=== PATIENT | female | born 1975 | race Two or more races ===

== ENCOUNTER 2025-02-22 15:35 | Emergency (ER) | payer MEDICAID, OTHER ==
[~2025-02-22] VITALS: Ht 167.6 cm; Wt 71.0 kg
[2025-02-22 15:36] VITALS: TEMP 97.4
--- NOTE | 2025-02-22 17:46 | ED.PDOC ---
History of Present Illness HPI Comments 49-year-old female with no reported PMHx presents with a chief complaint of right foot/ankle pain x 1 week. Patient states that one week ago she was working at a [employer] party and believes that she twisted her ankle when stepping incorrectly. Patient reports that she has been taking Advil's for the pain, but that they have not been helping. Patient reports that now her foot is turning purple and is swelling. No other symptoms or modifying factors present at this time. Chief Complaint: Lower Extremity Time Seen by MD: 17:40 Reviewed Notes: Medications, Allergies Allergies: Coded Allergies: Acetaminophen (Verified Allergy, Severe, 02/22/25) Home Meds Active Scripts Diclofenac Potassium (Diclofenac Potassium) 50 Mg Tab, 1 TAB PO TIDP for 10 Days, #30 TAB Prov:BUD ALEMAN MD 02/22/25 Information Source: Patient Mode of Arrival: Ambulatory Severity: Moderate Timing: Days Duration: Since onset Prehospital treatment: None Past Medical History PAST MEDICAL HISTORY: Denies Surgical History: Denies all surgeries [employer]ER History: Denies all [employer]ER Hx Family History Family History: Reviewed,noncontributory to illness Social History Smoker: Non-Smoker Alcohol: Denies ETOH Use Drugs: Denies Drug Use Lives In: Home Constitutional: denies: chills, diaphoresis, fatigue, fever, malaise, sweats, weakness, others EENTM: denies: blurred vision, double vision, ear bleeding, ear discharge, ear drainage, ear pain, ear ringing, eye pain, eye redness, hearing loss, mouth pain, mouth swelling, nasal discharge, nose bleeding, nose congestion, nose pain, photophobia, tearing, throat pain, throat swelling, voice changes, others Respiratory: denies: cough, hemoptysis, orthopnea, SOB at rest, shortness of breath, SOB with excertion, stridor, wheezing, others Cardiovascular: denies: chest pain, dizzy spells, diaphoresis, Dyspnea on exertion, edema, irregular heart beat, left arm pain, lightheadedness, palpitations, PND, syncope, others Gastrointestinal: denies: abdomen distended, abdominal pain, blood streaked bowels, constipated, diarrhea, dysphagia, difficulty swallowing, hematemesis, melena, nausea, poor appetite, poor fluid intake, rectal bleeding, rectal pain, vomiting, others Genitourinary: denies: abnormal vagina bleeding, burning, dyspareunia, dysuria, flank pain, frequency, hematuria, incontinence, pain, , vagina discharge, urgency, others Neurological: denies: dizziness, fainting, headache, left sided numbness, left sided weakness, numbness, paresthesia, pre-existing deficit, right sided num bness, right sided weakness, seizure, speech problems, tingling, tremors, weakness, others Musculoskeletal: reports: muscle pain; denies: back pain, gout, joint pain, joint swelling, muscle stiffness, neck pain, others Integumetry: denies: bruises, change in color, change in hair/nails, dryness, laceration, lesions, lumps, rash, wounds, others Allergic/Immunocompromised: denies: Difficulty Healing, Frequent Infections, Hi ves, Itching, others Hematologic/Lymphatic: denies: anemia, blood clots, easy bleeding, easy bruising, swollen glands, others Endocrine: denies: excessive hunger, excessive sweating, excessive thirst, excessive urination, flushing, intolerance to cold, intolerance to heat, unexplained weight gain, unexplained weight loss, others Psychiatric: denies: anxiety, bipolar disorder, depression, hopeless, panic disorder, schizophrenia, sleepless, suicidal, others All Other Systems: Reviewed and Negative Physical Exam General Appearance: Moderate Distress, Normal HEENT: Normal ENT Inspection, PERRL/EOMI, Pharynx Normal, TMs Normal Neck: Full Range of Motion, Non-Tender, Normal, Normal Inspection Respiratory: Chest Non-Tender, Lungs Clear, No Accessory Muscle Use, No Respiratory Distress, Normal Breath Sounds Cardiovascular: No Edema, No JVD, No Murmur, No Gallop, Normal Peripheral Pulses, Regular Rate/Rhythm Breast Exam: Deferred Gastrointestinal: No Organomegaly, Non Tender, No Pulsatile Mass, Normal Bowel Sounds, Soft Genitalia: Deferred Pelvic: Deferred Rectal: Deferred Extremities: No calf tenderness, Normal capillary refill, Normal inspection, Normal range of motion, Non-tender, No pedal edema Musculoskeletal : Location: Right Extremity Location: Ankle, Foot Apperance: Swelling, Limited ROM, Tenderness: Moderate Neurologic: Alert, snack stewardess II-XII nml as Tested, No Motor Deficits, Normal Affect, Normal Mood, No Sensory Deficits Cerebellar Function: Normal Reflexes: Normal Skin: Dry, Normal Color, Warm Peripheral Pulses: 1+ carotid (R), 1+ carotid (L) Lymphatic: No Adenopathy Was a procedure done? Was a procedure done?: No Differential Dx Considerations may include: Fracture sprain X-Ray, Labs, Meds, VS Vital Signs Date Time Temp Pulse Resp B/P (MAP) Pulse Ox O2 Delivery O2 Flow Rate FiO2 02/22/25 17:57 97 18 108/79 (89) 73 02/22/25 17:57 71 18 97 Room Air 02/22/25 15:36 97.4 85 15 113/73 96 97.4 X-Ray, Labs, Meds, VS Comment Patient came in to the [facility] with a an injury to her right ankle and right foot X-ray to right ankle and right foot shows mostly a fracture of the distal fibula Patient will have a posterior plaster splint and discharged home to follow up with her PCP Time of 1ST Reevaluation: 18:20 Reevaluation 1ST: Unchanged Time of 2ND Reevaluation: 18:33 Reevaluation 2ND: Unchanged Consultation: PCP Patient Education/Counseling: Diagnosis, Treatment, Prognosis, Need For Follow Up Family Education/Counseling: Diagnosis, Treatment, Prognosis, Need For Follow Up SEPSIS Sepsis Screen Date sepsis recognized/suspect: Feb 22, 2025 Time Sepsis recognized/suspect: 1538 Recent Procedure: No On Antibiotic Therapy: No Respiratory Rate >20: No Heart Rate >90: No Temp<36 C (96.8 F) or >38.3 C: No SBP <90 or MAP <65 mmHG: No New Acute Mental Status Change: No Is the patient on CPAP, BIPAP,: No Physician Orders R Ankle 3 View (02/22/25 17:41) R Foot 3 View Xray (02/22/25 17:41) Vital Signs Date Time Temp Pulse Resp B/P (MAP) Pulse Ox O2 Delivery O2 Flow Rate FiO2 02/22/25 17:57 97 18 108/79 (89) 73 02/22/25 17:57 71 18 97 Room Air 02/22/25 15:36 97.4 85 15 113/73 96 97.4 Departure 1 Departure Time of Disposition: 18:33 Impression: Primary Impression: Fracture of distal fibula Qualified Codes: S82.831A - Other fracture of upper and lower end of right fibula, initial encounter for closed fracture Disposition: 01 HOME / SELF CARE / HOMELESS Condition: Fair Additional Instructions: Your leg at home and follow up with your PCP e-Prescriptions Diclofenac Potassium (Diclofenac Potassium) 50 Mg Tab 1 TAB PO TIDP for 10 Days, #30 TAB Prov: BUD ALEMAN MD 02/22/25 Discharged With: Self Critical Care Note Critical Care Time?: No Stability Stability form required: No Heart Score Heart Score: Heart Score Response (Comments) Value History N/A 0 EKG N/A 0 Age 45-64 1 Risk Factors No known risk factors 0 Troponin N/A 0 Total 1 I personally scribed for BDU ALEMAN MD ([email or web address]) on 02/22/25 at 17:46. Electr onically submitted by Jh Lopez ([email or web address]). BUD ALEMAN MD Feb 22, 2025 17:46
[2025-02-22 17:57] VITALS: BP 108/79; PULSE 71; RESP 18; O2SAT 97
--- NOTE | 2025-02-22 18:24 | DVH ---
CLINICAL INDICATION: twisted TECHNIQUE: 3 radiographic views of the right foot were obtained. Comparison: XY R ANKLE 3 VIEW on DOS: 02/22/25 FINDINGS/IMPRESSION: Minimally displaced fracture distal fibula.
--- NOTE | 2025-02-22 18:26 | DVH ---
CLINICAL INDICATION: twisted TECHNIQUE: 3 radiographic views of the right ankle were obtained. Comparison: XY R FOOT 3 VIEW XRAY on DOS: 02/22/25 FINDINGS/IMPRESSION: Minimally displaced fracture distal fibula
[2025-02-22] MEDS ORDERED: DICL50TA2 PO (18:35)
== END 2025-02-22 18:42 | disposition home or self-care (01) ==
LOC: ER 15:35
DX: S82.831A Other fracture of upper and lower end of right fibula, initial encounter for closed fracture (principal); Z79.899 Other long term (current) drug therapy; X50.1XXA Overexertion from prolonged static or awkward postures, initial encounter; Y93.89 Activity, other specified; Y92.89 Other specified places as the place of occurrence of the external cause; Y99.8 Other external cause status
CPT/HCPCS: 29515; 73610; 73630

== ENCOUNTER 2025-03-31 13:51 | Emergency (ER) | payer MEDICAID ==
[~2025-03-31] VITALS: Ht 167.6 cm; Wt 70.0 kg
[~2025-03-31 13:51] MED LIST: DICL50TA2 PO
--- NOTE | 2025-03-31 15:23 | ED.PDOC ---
Back pain HPI HPI Comments 49-year-old female presents to the ER with a right foot pain. Patient reports on having experiencing persistent pain in the right foot particularly around the ankle for over a month falling a possible twist. The patient reports that an x- ray was taken on February 22, [address] Mei for right foot pain following a possible twist and they were told the there was likely a fracture in the distal fibula. The pain has not improves significantly since then in the area remains painful and sometimes appears purple in color. Patient has not been taking her prescribed diclofenac tablets for pain management due from the pharmacy indicating that the prescription was not improve. The pain does affect her daily activities and they would want to ensure proper healing at this time. Denies any other symptoms at this time. Chief Complaint: Lower Extremity Time Seen by MD: 15:20 Reviewed Notes: Nurses Notes, Medications, Allergies Allergies: Coded Allergies: Acetaminophen (Verified Allergy, Severe, 02/22/25) Home Meds Active Scripts Diclofenac Potassium (Diclofenac Potassium) 50 Mg Tab, 1 TAB PO TIDP for 10 Days, #30 TAB Prov:BUD MEI MD 02/22/25 Information Source: Patient Mode of Arrival: Ambulatory Timing: Weeks Duration: Since onset Severity: Moderate Prehospital treatment: None Quality: Aching Onset: Twisting History of: None Associated signs and symptoms: None Past Medical History PAST MEDICAL HISTORY: Denies 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 [employer]IST[employer] Hx Family History Family History: Reviewed,noncontributory to illness, Unknown Social History Smoker: Non-Smoker Alcohol: Denies ETOH Use Drugs: Denies Drug Use Lives In: Home Constitutional: denies: chills, diaphoresis, fatigue, fever, malaise, sweats, weakness, others EENTM: denies: blurred vision, double vision, ear bleeding, ear discharge, ear drainage, ear pain, ear ringing, eye pain, eye redness, hearing loss, mouth pain, mouth swelling, nasal discharge, nose bleeding, nose congestion, nose pain, photophobia, tearing, throat pain, throat swelling, voice changes, others Respiratory: denies: cough, hemoptysis, orthopnea, SOB at rest, shortness of breath, SOB with excertion, stridor, wheezing, others Cardiovascular: denies: chest pain, dizzy spells, diaphoresis, Dyspnea on exertion, edema, irregular heart beat, left arm pain, lightheadedness, pa lpitations, PND, syncope, others Gastrointestinal: denies: abdomen distended, abdominal pain, blood streaked bowels, constipated, diarrhea, dysphagia, difficulty swallowing, hematemesis, melena, nausea, poor appetite, poor fluid intake, rectal bleeding, rectal pain, vomiting, others Genitourinary: denies: abnormal vagina bleeding, burning, dyspareunia, dysuria, flank pain, frequency, hematuria, incontinence, pain, , vagina discharge, urgency, others Neurological: denies: dizziness, fainting, headache, left sided numbness, left sided weakness, numbness, paresthesia, pre-existing deficit, right sided numbness, right sided weakness, seizure, speech problems, tingling, tremors, weakness, others Musculoskeletal: reports: others (Right ankle pain/swelling); denies: back pain , gout, joint pain, joint swelling, muscle pain, muscle stiffness, neck pain Integumetry: denies: bruises, change in color, change in hair/nails, dryness, laceration, lesions, lumps, rash, wounds, others Allergic/Immunocompromised: denies: Difficulty Healing, Frequent Infections, Hives, Itching, others Hematologic/Lymphatic: denies: anemia, blood clots, easy bleeding, easy bruising, swollen glands, others Endocrine: denies: excessive hunger, excessive sweating, excessive thirst, excessive urination, flushing, intolerance to cold, intolerance to heat, unexplained weight gain, unexplained weight loss, others Psychiatric: denies: anxiety, bipolar disorder, depression, hopeless, panic disorder, schizophrenia, sleepless, suicidal, others All Other Systems: Reviewed and Negative Physical Exam Exam Comments Mild swelling to the right lateral malleolus, dorsiflexion plantar flexion strong, DP 2+ neurovascular sensation intact no pain to the Achilles General Appearance: No Apparent Distress, Normal HEENT: Normal ENT Inspection, Pharynx Normal, TMs Normal Neck: Full Range of Motion, Non-Tender, Normal, Normal Inspection Respiratory: Chest Non-Tender, Lungs Clear, No Accessory Muscle Use, No Respiratory Distress, Normal Breath Sounds Cardiovascular: No Edema, No JVD, No Murmur, No Gallop, Normal Peripheral Pulses, Regular Rate/Rhythm Breast Exam: Deferred Gastrointestinal: No Organomegaly, Non Tender, No Pulsatile Mass, Normal Bowel Sounds, Soft Genitalia: Deferred Pelvic: Deferred Rectal: Deferred Extremities: No calf tenderness, Normal capillary refill, Normal inspection, Normal range of motion, Non-tender, No pedal edema Musculoskeletal : Apperance: Normal Neurologic: Alert, technical solutions director II-XII nml as Tested, No Motor Deficits, Normal Affect, Normal Mood, No Sensory Deficits Cerebellar Function: Normal Reflexes: Normal Skin: Dry, Normal Color, Warm Lymphatic: No Adenopathy Was a procedure done? Was a procedure done?: No Back Pain Differential Dx Differential Diagnosis: Fracture, Musculoskeletal Pain, N/A X-Ray, Labs, Meds, VS Vital Signs Date Time Temp Pulse Resp B/P (MAP) Pulse Ox O2 Delivery O2 Flow Rate FiO2 03/31/25 13:56 98.2 72 17 125/85 97 98.2 PATIENT: JOLIE MELGOZAACCT: [id number] UNIT: [id number] : 1975 LOC: ER ROOM / BED: / AGE / SEX: 49 / F ADM STATUS: REG ER SERVICE 53 ORDERING PHYSICIAN: KELLEY BYERS PRICING STRATEGIST PROCEDURE(s): RANKL - R ANKLE 3 VIEW REASON: fracture 4 wks ago. [facility] ORDER NUMBER(s): [id number], ACCESSION NUMBER(s): [id number] CLINICAL INDICATION: fracture 4 wks ago. [facility] study TECHNIQUE: 3 radiographic views of the right ankle were obtained. Comparison: XY R ANKLE 3 VIEW on DOS: 02/22/25 FINDINGS/IMPRESSION: Mildly displaced distal fibular fracture is noted. Ankle mortise is normal. No fractures noted through the medial malleolus. ATED BY: KIARA PÉREZ Jr., DO DICTATED DATE/TIME: 03/31/251520 SIGNED BY: KIARA PÉREZ Jr., SIGNED DATE/TIME: 03/31/251520 CC: X-Ray, Labs, Meds, VS Comment 49-year-old female presents to the ER with a right foot pain. Patient arrives alert and oriented, ABC's intact, afebrile, vital signs stable, saturating well in room air Diagnostic imaging ordered by me and results interpreted by radiology : Right ankle x-ray FINDINGS/IMPRESSION: Mildly displaced distal fibular fracture is noted. Ankle mortise is normal. No fractures noted through the medial malleolus. Additional MDM Review of External, Non-ED records: External records reviewed. Discussion with independent historian (EMS, family) history obtained from the patient/parents (if applicable) at bedside Chronic conditions affecting care: None Social determinants of health affecting care: None Consideration of admission (observation or admission): I considered escalation of care to admission for this patient, however given the reassuring workup, the patient is safe for outpatient management. Discussion with the Radiology: No Tests considered but not performed: Prescription medication considered but not given: 12 lead EKG interpretation: Time of 1ST Reevaluation: 15:50 Reevaluation 1ST: Unchanged Patient Education/Counseling: Diagnosis, Treatment, Prognosis Family Education/Counseling: No Family Present SEPSIS Sepsis Screen Date sepsis recognized/suspect: Mar 31, 2025 Time Sepsis recognized/suspect: 1356 Recent Procedure: No On Antibiotic Therapy: No Respiratory Rate >20: No Heart Rate >90: No Temp<36 C (96.8 F) or >38.3 C: No SBP <90 or MAP <65 mmHG: No New Acute Mental Status Change: No Is the patient on CPAP, BIPAP,: No Physician Orders R Ankle 3 View (03/31/25 14:54) Vital Signs Date Time Temp Pulse Resp B/P (MAP) Pulse Ox O2 Delivery O2 Flow Rate FiO2 03/31/25 13:56 98.2 72 17 125/85 97 98.2 Departure 1 Departure Time of Disposition: 15:48 Impression: Primary Impression: Fracture of distal fibula Qualified Codes: S82.831S - Other fracture of upper and lower end of right fibula, sequela Disposition: HOME / SELF CARE / HOMELESS Condition: Fair Discharged With: Self Critical Care Note Critical Care Time?: No Stability Stability form required: No Heart Score Heart Score: Heart Score Response (Comments) Value History N/A 0 EKG N/A 0 Age N/A 0 Risk Factors N/A 0 Troponin N/A 0 Total 0 I personally scribed for KELLEY BYERS NP ([email or web address]) on 03/31/25 at 15:23. Electronically submitted by Jono Rodriguez ([email or web address]). KELLEY BYERS NP Mar 31, 2025 15:23
[2025-03-31] MEDS ORDERED: NAPR-746 PO (15:56)
[2025-03-31 16:03] VITALS: BP 126/82; PULSE 77; RESP 16; TEMP 98.3; O2SAT 97
== END 2025-03-31 16:06 | disposition home or self-care (01) ==
LOC: ER 13:51
DX: S82.831A Other fracture of upper and lower end of right fibula, initial encounter for closed fracture (principal); X58.XXXA Exposure to other specified factors, initial encounter; Y93.89 Activity, other specified; Y92.89 Other specified places as the place of occurrence of the external cause; Y99.8 Other external cause status
CPT/HCPCS: 29515; 73610